=== PATIENT | male | born 1940 | race Two or more races ===

== ENCOUNTER 2020-09-21 06:16 | Day surgery (SDC) | payer OTHER | END 2020-09-21 13:30 | disposition home or self-care (01) | LOC: AMB-ENDOS 06:16 | PROVIDERS: ATTEND Surgery | DX: D12.0 Benign neoplasm of cecum (principal); D12.2 Benign neoplasm of ascending colon; D12.4 Benign neoplasm of descending colon; D12.5 Benign neoplasm of sigmoid colon; Z12.11 Encounter for screening for malignant neoplasm of colon ==

== ENCOUNTER 2021-03-22 06:21 | Day surgery (SDC) | payer OTHER | END 2021-03-22 11:50 | disposition home or self-care (01) | LOC: AMB-ENDOS 06:21 | PROVIDERS: ATTEND Surgery | DX: D12.2 Benign neoplasm of ascending colon (principal); D12.3 Benign neoplasm of transverse colon; D12.4 Benign neoplasm of descending colon; D12.5 Benign neoplasm of sigmoid colon; K64.8 Other hemorrhoids; Z20.822 Contact with and (suspected) exposure to COVID-19 ==

== ENCOUNTER 2022-09-25 08:32 | Day surgery (SDC) | payer OTHER ==
[~2022-09-25] VITALS: Ht 160 cm; Wt 64.4 kg
[~2022-09-25 08:32] MED LIST: DILTI PO; DILTIAZEM ER120 M2 PO; DIOVAN40 MG PO; ISOSORBIDE MONO60 MG PO; PLAVIX75 MG PO; RANEXA500 MG PO; SPIRIV IH; SYMBIC IH; [UNRECOGNIZED DRUG - OTHER] PO; [UNRECOGNIZED DRUG - OTHER] PO
[2022-09-25] MEDS ORDERED: TRAM1TAB98 PO (15:20)
[2022-09-25] MEDS ORDERED: NEURONTIN300 MG PO (15:21)
== END 2022-09-25 19:55 | disposition home or self-care (01) ==
LOC: CIR.AMB 08:32
PROVIDERS: ATTEND Surgery
DX: K60.1 Chronic anal fissure (principal); K62.4 Stenosis of anus and rectum; K63.89 Other specified diseases of intestine; K59.09 Other constipation; K57.30 Diverticulosis of large intestine without perforation or abscess without bleeding; K64.8 Other hemorrhoids; I10 Essential (primary) hypertension; F17.210 Nicotine dependence, cigarettes, uncomplicated; E11.9 Type 2 diabetes mellitus without complications; F12.90 Cannabis use, unspecified, uncomplicated; Z88.6 Allergy status to analgesic agent; Z20.822 Contact with and (suspected) exposure to COVID-19

== ENCOUNTER 2023-05-05 05:15 | Day surgery (SDC) | payer OTHER ==
[~2023-05-05 05:15] MED LIST changes: +NEURONTIN300 MG PO; +TRAM1TAB98 PO
== END 2023-05-05 09:30 | disposition home or self-care (01) ==
LOC: AMB-ENDOS 05:15 → CIR.AMB 13:30
PROVIDERS: ATTEND Surgery
DX: K57.30 Diverticulosis of large intestine without perforation or abscess without bleeding (principal); K59.09 Other constipation; K63.5 Polyp of colon; Z20.822 Contact with and (suspected) exposure to COVID-19; Z88.6 Allergy status to analgesic agent

== ENCOUNTER 2025-02-07 06:30 | Day surgery (SDC) | payer OTHER ==
[2025-02-07 06:24] LABS: BASO % 0.2 % (0.1-1.2); EOS # 0.14 (0.04-0.54); EOS % 2.4 % (0.7-7.0); HEMOGLOBIN 13.5 g/dL (13.7-17.5); LYMPH # 1.81 (1.18-3.74); LYMPH % 31.2 % (19.3-53.1); MEAN CORPUSCULAR HEMOGLOBIN 31.1 pg (25.6-32.2); MONO # 0.71 (0.24-0.82); NEUT # 3.12 (1.56-6.13); NEUT % 53.7 % (34.0-71.1); PLATELET COUNT 266 K/uL (163-369); RED BLOOD COUNT 4.34 M/uL (4.63-6.08)
[2025-02-07 06:29] LABS: MONO % 12.2 % (4.7-12.5)
[2025-02-07 06:53] LABS: INR 1.18; PARTIAL THROMBOPLASTIN TIME 26.4 SECONDS (22.0-34.0); PROTHROMBIN TIME 12.7 SECONDS (9.0-11.5)
[2025-02-07 07:07] LABS: ALBUMIN 3.7 gm/dL (3.4-5.0); BILIRUBIN TOTAL 0.77 mg/dL (0.3-1.2); CALCIUM 9.1 mg/dL (8.5-10.1); CREATININE SERUM 0.84 mg/dL (0.70-1.30); GFR 86.84; GLOBULINA 3.4 G/DL (2.4-3.5); POTASSIUM 4.52 mEq/L (3.5-5.1); TOTAL PROTEIN 7.1 gm/dL (6.4-8.2)
[2025-02-07] MEDS ORDERED: FLUMAZENIL 0.5 MG/5 ML ML IV STA (15:50)
[2025-02-07] MEDS ORDERED: NALOXONE HCL 0.4 MG/ML AMPUL IV STA (15:50)
[2025-02-07] MEDS ORDERED: fentaNYL CITRATE 50 MCG/ML AMPUL IV PUSH ONE (16:00)
[2025-02-07] MEDS ORDERED: DIPHENHYDRAMINE HCL 50 MG/ML VIAL 1ML IV ONE (16:00)
[2025-02-07] MEDS ORDERED: MIDAZOLAM HCL 2 MG/2 ML VIAL IV ONE (16:00)
== END 2025-02-07 15:55 | disposition home or self-care (01) ==
LOC: AMB-ENDOS 06:30
PROVIDERS: ATTEND Surgery
DX: D12.2 Benign neoplasm of ascending colon (principal); K57.30 Diverticulosis of large intestine without perforation or abscess without bleeding; K63.5 Polyp of colon; Z88.6 Allergy status to analgesic agent; K63.89 Other specified diseases of intestine